=== PATIENT | male | born 1975 | race Two or more races ===

== ENCOUNTER 2024-08-19 08:54 | Inpatient (IN) | payer MEDICAID, OTHER ==
[~2024-08-19] VITALS: Ht 167.6 cm; Wt 100.1 kg
[~2024-08-19 08:54] MED LIST: ATEN-60 PO; HYDR12.59 PO; METF-372 PO
[2024-08-19 10:33] LABS: Basophils # (auto) 0.1 10 ^3/uL (0-0.2); Basophils % (auto) 0.7 % (0.0-2.0); Eosinophils # (auto) 0.1 10 ^3/uL (0-0.8); Eosinophils % (auto) 1.5 % (0.0-7.0); Hematocrit 45.1 % (41.0-53.0); Hemoglobin 14.7 g/dL (13.5-17.5); Lymphocytes # (auto) 2.3 10 ^3/uL (0.4-5.4); Lymphocytes % (auto) 24.5 % (10.0-50.0); Mean Corpuscular Hgb Conc. 32.6 g/dL (32.0-36.0); Monocytes # (auto) 0.5 10 ^3/uL (0-1.3); Monocytes % (auto) 5.4 % (0.0-12.0); Neutrophils # (auto) 6.5 10 ^3/uL (1.6-8.6); Neutrophils % (auto) 67.9 % (37.0-80.0); Platelet Count (auto) 261 10^3/uL (140-450); White Blood Cell 9.5 10^3/uL (4.4-10.8)
--- NOTE | 2024-08-19 10:45 | ED.PDOC ---
History of Present Illness HPI Comments 49 year old male presents to the ED with chief complaint of abdominal pain and SOB. Patient reports that his home health nurse had noted that the patient had redness to his suprapubic region that she saw today, worried it might be cellulitis and was advised to come into the ED. Patient relays that he also has been experiencing chest pain, lower leg edema, and SOB for the past 3 weeks. 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 Patient denies any N/V/D, dizziness, headache, fever, or chills. Chief Complaint: Abdominal Pain Time Seen by MD: 10:34 Primary Care Provider: VAL DEJESUS Reviewed Notes: Nurses Notes, Medications, Allergies Allergies: Coded Allergies: NO KNOWN ALLERGIES (Unverified , 03/12/13) Home Meds Reported Medications Atenolol (Atenolol) 25 Mg Tab, 25 MG PO DAILY 03/12/13 Hydrochlorothiazide (Hydrochlorothiazide) 12.5 Mg Cap, 12.5 MG PO DAILY 03/12/13 Information Source: Patient Mode of Arrival: Wheelchair Severity: Moderate Timing: Weeks Duration: Since onset Prehospital treatment: None Past Medical History PAST MEDICAL HISTORY: Asthma, CHF, DM, HTN Past Medical History (Other): Cardiomyopathy Surgical History (Other): Tumor removal surgery Family History Family History: Reviewed,noncontributory to illness, Unknown Social History Smoker: Cigarettes Alcohol: Denies ETOH Use Drugs: Denies Drug Use Lives In: Home Constitutional: denies: chills, diaphoresis, fatigue, fever, malaise, sweats, weakness, others EENTM: denies: blurred vision, double vision, ear bleeding, ear discharge, ear drainage, ear pain, ear ringing, eye pain, eye redness, hearing loss, mouth pain, mouth swelling, nasal discharge, nose bleeding, nose congestion, nose pain, photophobia, tearing, throat pain, throat swelling, voice changes, others Respiratory: reports: shortness of breath; denies: cough, hemoptysis, orthopnea, SOB at rest, SOB with excertion, stridor, wheezing, others Cardiovascular: reports: chest pain, edema; denies: dizzy spells, diaphoresis, Dyspnea on exertion, irregular heart beat, left arm pain, lightheadedness, palpitations, PND, syncope, others Gastrointestinal: reports: abdominal pain; denies: abdomen distended, blood streaked bowels, constipated, diarrhea, dysphagia, difficulty swallowing, hematemesis, melena, nausea, poor appetite, poor fluid intake, rectal bleeding, rectal pain, vomiting, others Genitourinary: denies: burning, dysuria, flank pain, frequency, hematuria, incontinence, penile discharge, penile sore, pain, testicle pain, testicle swelling, urgency, others Neurological: denies: dizziness, fainting, headache, left sided numbness, left sided weakness, numbness, paresthesia, pre-existing deficit, right sided numbness, right sided weakness, seizure, speech problems, tingling, tremors, weakness, others Musculoskeletal: denies: back pain, gout, joint pain, joint swelling, muscle pain, muscle stiffness, neck pain, others Integumetry: reports: lesions; denies: bruises, change in color, change in hair/nails, dryness, laceration, lumps, rash, wounds, others Allergic/Immunocompromised: denies: Difficulty Healing, Frequent Infections, Hives, Itching, others Hematologic/Lymphatic: denies: anemia, blood clots, easy bleeding, easy bruising, swollen glands, others Endocrine: denies: excessive hunger, excessive sweating, excessive thirst, excessive urination, flushing, intolerance to cold, intolerance to heat, unexplained weight gain, unexplained weight loss, others Psychiatric: denies: anxiety, bipolar disorder, depression, hopeless, panic disorder, schizophrenia, sleepless, suicidal, others All Other Systems: Reviewed and Negative Physical Exam General Appearance: Moderate Distress, Normal HEENT: Normal ENT Inspection, PERRL/EOMI Neck: Full Range of Motion, Non-Tender, Normal, Normal Inspection Respiratory: Chest Non-Tender, Lungs Clear, No Accessory Muscle Use, No Respiratory Distress, Normal Breath Sounds Cardiovascular: No Edema, No JVD, No Murmur, No Gallop, Normal Peripheral Pulses, Regular Rate/Rhythm Breast Exam: Deferred Gastrointestinal: No Organomegaly, Non Tender, No Pulsatile Mass, Normal Bowel Sounds, Soft Genitalia: Deferred Pelvic: Deferred Rectal: Deferred Extremities: No calf tenderness, Normal capillary refill, Normal inspection, Normal range of motion, Non-tender, Pedal edema Musculoskeletal : Apperance: Normal Neurologic: Alert, concrete block mason II-XII nml as Tested, No Motor Deficits, Normal Affect, Normal Mood, No Sensory Deficits Cerebellar Function: NOT DONE Reflexes: NOT DONE Skin: Dry, Normal Color, Warm Peripheral Pulses: 3+ Radial (R), 3+ Radial (L) Lymphatic: No Adenopathy Was a procedure done? Was a procedure done?: No Differential Dx Considerations may include: CHF Cellulitis X-Ray, Labs, Meds, VS Vital Signs Date Time Temp Pulse Resp B/P (MAP) Pulse Ox O2 Delivery O2 Flow Rate FiO2 08/19/24 09:15 99.3 108 20 121/87 (98) 96 Lab Test 08/19/24 09:48 08/19/24 09:11 Range/Units White Blood Count 9.5 4.4-10.8 10^3/uL Red Blood Count 4.90 4.5-5.90 10^6/uL Hemoglobin 14.7 13.5-17.5 g/dL Hematocrit 45.1 41.0-53.0 % Mean Corpuscular Volume 92.0 80.0-100.0 fL Mean Corpuscular Hemoglobin 30.0 28.0-32.0 pg Mean Corpuscular Hemoglobin Concent 32.6 32.0-36.0 g/dL Red Cell Distribution Width 16.0 H 11.8-14.3 % Platelet Count 261 140-450 10^3/uL Mean Platelet Volume 9.0 6.9-10.8 fL Neutrophils (%) (Auto) 67.9 37.0-80.0 % Lymphocytes (%) (Auto) 24.5 10.0-50.0 % Monocytes (%) (Auto) 5.4 0.0-12.0 % Eosinophils (%) (Auto) 1.5 0.0-7.0 % Basophils (%) (Auto) 0.7 0.0-2.0 % Neutrophils # (Auto) 6.5 1.6-8.6 10 ^3/uL Lymphocytes # (Auto) 2.3 0.4-5.4 10 ^3/uL Monocytes # (Auto) 0.5 0-1.3 10 ^3/uL Eosinophils # (Auto) 0.1 0-0.8 10 ^3/uL Basophils # (Auto) 0.1 0-0.2 10 ^3/uL Nucleated Red Blood Cells 0.0 % Sodium Level Pending Potassium Level Pending Chloride Level Pending Carbon Dioxide Level Pending Anion Gap Pending Blood Urea Nitrogen Pending Creatinine Pending Glomerular Filtration Rate Calc Pending BUN/Creatinine Ratio Pending Serum Glucose Pending Calcium Level Pending POC Glucose 120 H 70-106 mg/dl Patient alert. Vitals stable. Answering all questions. He does have increased adipose tissue. Redness suprapubic region. Cellulitis. Cardiomyopathy. Cardiology consultation. Echocardiogram. He used drugs in his younger days. Bilateral lower extremity pitting edema. Explained to the patient. Time of 1ST Reevaluation: 11:34 Reevaluation 1ST: Unchanged Patient Education/Counseling: Diagnosis, Treatment Family Education/Counseling: No Family Present Additional Information I reviewed the following notes from patient's past medical encounters: 04/16/13 for PNA The following tests were ordered, and results were reviewed by me: BMP, CBC, UA Additional Information was gathered from interviewing the following independent historians: Semiautomatic Stitcher Operator I reviewed and agreed with the following test results read by other providers: None I discussed treatment and results with medical personnel and fire claims adjuster. Departure 1 Departure Time of Disposition: 11:21 Impression: Primary Impression: CHF (congestive heart failure) Qualified Codes: I50.43 - Acute on chronic combined systolic (congestive) and diastolic (congestive) heart failure Additional Impression: Cellulitis Qualified Codes: L03.119 - Cellulitis of unspecified part of limb Disposition: 09 ADMITTED INPATIENT Admit to: Med Surg Condition: Guarded Critical Care Note Critical Care Time?: Yes (45 min-critical care time only) Stability Stability form required: No Heart Score Heart Score: Heart Score Response (Comments) Value History N/A 0 EKG N/A 0 Age N/A 0 Risk Factors N/A 0 Troponin N/A 0 Total 0 I personally scribed for HESHAM RAMIREZ MD ([email or web address]) on 08/19/24 at 10:45. Electronically submitted by Lai Lincoln ([email or web address]). HESHAM RAMIREZ MD Aug 19, 2024 10:45
[2024-08-19 11:18] VITALS: PULSE 106; RESP 18; O2SAT 98
[2024-08-19 11:27] LABS: Potassium 4.6 mmol/L (3.5-5.1); Sodium 139 mmol/L (136-145)
[2024-08-19 11:28] LABS: Anion Gap 6 (5-15); Calcium 9.3 mg/dL (8.7-10.4); Carbon Dioxide 26 mmol/L (20-31)
[2024-08-19 11:33] LABS: BUN/Creatinine Ratio 18.7 (10.0-20.0); Blood Urea Nitrogen 14 mg/dL (9-23); Chloride 107 mmol/L (98-107); Glucose 129 mg/dL (74-106)
[2024-08-19] MEDS: cefTRIAXone 1GM/50ML D5W 50 ML IV ONE (12:17)
[2024-08-19] MEDS: FUROSEMIDE 40 MG/4 ML VIAL IV ONE (12:18)
[2024-08-19] MEDS: CLINDAMYCIN 600MG IV 50 ML IV ONE (12:52)
[2024-08-19 13:22] LABS: Urine Bacteria None Seen /hpf (None Seen); Urine WBC None Seen /hpf (0 - 3)
[2024-08-19 13:37] LABS: Urine Blood Negative /uL (Negative); Urine Clarity Clear (Clear); Urine Color Colorless (Yellow); Urine Mucus FEW (None Seen); Urine Protein, UAD Negative (Negative); Urine Specific Gravity 1.007 (1.001-1.035); Urine Squamous Epithelial Cell FEW /hpf (<5); Urine Urobilinogen Normal (Negative); Urine pH 5.5 (5.0-9.0)
[2024-08-19] MEDS ORDERED: CARV6.2551 PO (15:41)
[2024-08-19] MEDS ORDERED: SPIR25TA8 PO (15:41)
[2024-08-19] MEDS ORDERED: ASPI-325 PO (15:41)
[2024-08-19] MEDS ORDERED: OMEG-86 PO (15:41)
[2024-08-19] MEDS ORDERED: FURO40TA4 PO (15:41)
[2024-08-19] MEDS ORDERED: MORPHINE SULFATE INJ 2 MG/ml SYRG IV PRN (15:45)
[2024-08-19] MEDS ORDERED: HYDROcodone-ACET 5/325MG TAB PO PRN (15:45)
[2024-08-19] MEDS ORDERED: ONDANSETRON HCL 4 MG/2 ML VIAL IV PRN (15:45)
[2024-08-19] MEDS ORDERED: ACETAMINOPHEN 325 MG TAB PO PRN (15:45)
[2024-08-19] MEDS ORDERED: DEXTROSE (50%) 50ML SYRG IV PRN (15:45)
[2024-08-19] MEDS ORDERED: ALBUTEROL SULF 2.5 MG/0.5ML(0.5%) NEB SOLN NEB PRN (16:00)
[2024-08-19] MEDS ORDERED: IPRATROPIUM BROM 0.5 MG/2.5ML INH SOL NEB PRN (16:00)
--- NOTE | 2024-08-19 16:04 | DVHHP2 ---
History of Present Illness Reason for Visit: abdominal pain, SOB, and skin redness History of Present Illness Yonny Shane is a 49YO M with pmHx of HTN, DM, Asthma, CHF, peripheral ana ropathy, tonsillectomy, hernia repair, ear tubes, and tumor removal who presents to the ED for abdominal pain, shortness of breath, left lower extremity edema, and suprapubic redness x2 weeks. Patient reports that he is compliant with his medications. Patient denies any chest pain, nausea, vomiting, diarrhea, lightheadedness, fever, chills, recent sick contacts, and dizziness. Patient reports that he just moved here and is trying to establish care. Cardiovascular: CHF, HTN Pulmonary: Asthma Endocrine: Diabetes Past Medical History Peripheral neuropathy Past Surgical History: Hernia Repair, Other, Tonsillectomy Past Surgical History Eustachian tubes Tumor removal in abdomen Family History: Cancer, DM, Other (Dad leukemia cancer and diabetes, grandma breast cancer, mom with thyroid disease), Thyroid disfunction Smoke: <1 pack per day ALCOHOL: none Drugs: None Lives: with Family Domestic Violence: Neg Review of Systems Constitutional: No: Fever, Chills, Sweats, Weakness, Malaise, Other Eyes: No: Pain, Vision change, Conjunctivae inflammation, Eyelid inflammation, Other, Redness ENT: No: Ear pain, Ear discharge, Nose pain, Nose discharge, Nose congestion, Mouth pain, Mouth swelling, Throat pain, Throat swelling, Other Respiratory: Shortness of breath; No: Cough, Dry, SOB with excertion, Wheezing, Hemoptysis, Pleuritic Pain, Sputum, Wheezing, Other Cardiovascular: No: Chest Pain, Palpitations, Orthopnea, Paroxysmal Noc. Dyspnea, Edema, Lt Headedness, Other Gastrointestinal: Abdominal Pain; No: Nausea, Vomiting, Diarrhea, Constipation, Melena, Hematochezia, Other Genitourinary: No Dysuria, No Frequency, No Incontinence, No Hematuria, No Retention, No Other Musculoskeletal: No: other, neck pain, shoulder pain, arm pain, back pain, hand pain, leg pain, foot pain Skin: Other; No: Rash, Lesions, Jaundice, Bruising Neurological: No: Weakness, Numbness, Incoordination, Change in speech, Confusion, Seizures, Other Allergies: Coded Allergies: NO KNOWN ALLERGIES (Unverified , 03/12/13) Medications Current Medications Medications Dose Ordered Sig/Radha Route Start Time Stop Time Status Last Admin Dose Admin Ceftriaxone Sodium 50 ml @ 100 mls/hr DAILY@09 IV 08/20/24 09:00 UNV Clindamycin Phosphate 50 ml @ 50 mls/hr Q8HR IV 08/19/24 22:00 UNV Atenolol 25 mg DAILY PO 08/20/24 10:00 UNV Patient Own Medication 12.5 mg DAILY PO 08/20/24 10:00 UNV Exam Vital Signs Vital Signs Date Time Temp Pulse Resp B/P (MAP) Pulse Ox O2 Delivery O2 Flow Rate FiO2 08/19/24 14:37 100 19 141/85 (103) 96 08/19/24 11:18 98.6 98.6 08/19/24 11:18 Room Air* 0 21 General Appearance: Alert, Oriented X3, Cooperative, mild distress HEENT: Atraumatic, PERRLA, EOMI, Mucous membr. moist/pink Respiratory: Normal air movement Cardiovascular: Normal S1, Normal S2, No murmurs Abdominal: Soft Extremities: No cyanosis Neuro: Normal speech, Normal tone, Sensation intact Psych/Mental Status: Mental status NL, Mood NL Labs/Xrays Labs Test 08/19/24 11:41 08/19/24 09:48 08/19/24 09:11 Range/Units Urine Color Colorless Yellow Urine Clarity Clear Clear Urine pH 5.5 5.0-9.0 Urine Specific [place] 1.007 1.001-1.035 Urine Protein Negative Negative Urine Ketones Negative Negative Urine Blood Negative Negative /uL Urine Nitrite Negative Negative Urine Bilirubin Negative Negative Urine Urobilinogen Normal Negative mg/dL Urine Leukocyte Esterase Negative Negative /uL Urine RBC None seen 0 - 3 /hpf Urine WBC None seen 0 - 3 /hpf Urine Squamous Epithelial Cells Few <5 /hpf Urine Bacteria None seen None Seen /hpf Urine Mucus Few None Seen Urine Glucose Normal Normal mg/dL White Blood Count 9.5 4.4-10.8 10^3/uL Red Blood Count 4.90 4.5-5.90 10^6/uL Hemoglobin 14.7 13.5-17.5 g/dL Hematocrit 45.1 41.0-53.0 % Mean Corpuscular Volume 92.0 80.0-100.0 fL Mean Corpuscular Hemoglobin 30.0 28.0-32.0 pg Mean Corpuscular Hemoglobin Concent 32.6 32.0-36.0 g/dL Red Cell Distribution Width 16.0 H 11.8-14.3 % Platelet Count 261 140-450 10^3/uL Mean Platelet Volume 9.0 6.9-10.8 fL Neutrophils (%) (Auto) 67.9 37.0-80.0 % Lymphocytes (%) (Auto) 24.5 10.0-50.0 % Monocytes (%) (Auto) 5.4 0.0-12.0 % Eosinophils (%) (Auto) 1.5 0.0-7.0 % Basophils (%) (Auto) 0.7 0.0-2.0 % Neutrophils # (Auto) 6.5 1.6-8.6 10 ^3/uL Lymphocytes # (Auto) 2.3 0.4-5.4 10 ^3/uL Monocytes # (Auto) 0.5 0-1.3 10 ^3/uL Eosinophils # (Auto) 0.1 0-0.8 10 ^3/uL Basophils # (Auto) 0.1 0-0.2 10 ^3/uL Nucleated Red Blood Cells 0.0 % Sodium Level 139 136-145 mmol/L Potassium Level 4.6 3.5-5.1 mmol/L Chloride Level 107 98-107 mmol/L Carbon Dioxide Level 26 20-31 mmol/L Anion Gap 6 5-15 Blood Urea Nitrogen 14 9-23 mg/dL Creatinine 0.75 0.700-1.30 mg/dL Glomerular Filtration Rate Calc 109 >90 mL/min BUN/Creatinine Ratio 18.7 10.0-20.0 Serum Glucose 129 H 74-106 mg/dL Calcium Level 9.3 8.7-10.4 mg/dL POC Glucose 120 H 70-106 mg/dl Assessment/Plan Assessment/Plan Assessment/Plan: Intractable abdominal pain Cellulitis of suprapubic area rule out sepsis Acute on chronic CHF exacerbation UA IV antibiotics-clindamycin and ceftriaxone IV Lasix CT abdomen and pelvis Echo ordered Last echo done on 04/16/2013 EF <10% Labs A.m. labs Antiemetics Pain management Lactic ESR CRP Blood cultures Chest x-ray BNP History of Diabetes Hemoglobin A1c ISS and Accu-Cheks Chronic hypertension Continue home medications Chronic asthma P.r.n. breathing treatments Hyperglycemia Hemoglobin A1c ISS and Accu-Cheks FEN/PPX diet hl DVT prophylaxis -Lovenox PUD prophylaxis - not indicated no history of GERD or GI bleed Admit to med surg Home medications reconciled Discussed plan of care with patient, mom and nurse Plan discussed with: Patient My Orders Orders - EFREN FISHP Procedure Category Date Status Time Ceftriaxone 1gm/50ml PHA 08/20/24 Logged D5w (Rocephin) 09:00 Clindamycin 600mg Iv PHA 08/19/24 Logged (Cleocin Iv) 22:00 Atenolol Tablet PHA 08/20/24 Logged (Tenormin Tablet) 10:00 (NF) PHA 08/20/24 Logged Hydrochlorothiazide 10:00 Admit ADMIT 08/19/24 Verified 15:41 Allergies RUSLAN 08/19/24 Verified 15:41 Code Status CODE 08/19/24 Verified 15:41 Hydrocodone-Acet PHA 08/19/24 Verified 5/325mg Tab (Mineral 15:45 Ondansetron Hcl PHA 08/19/24 Verified (Zofran) 15:45 Enoxaparin Sodium PHA 08/20/24 Verified (Lovenox) 10:00 Complete Blood Count LAB 08/20/24 Verified 04:00 Comprehensive LAB 08/20/24 Verified Metabolic Panel 04:00 Cardiac DIET 08/19/24 Verified Diet-2gna,Lofat,Lochol Dinner Acetaminophen Tablet PHA 08/19/24 Verified (Tylenol Tablet) 15:45 Morphine Sulfate PHA 08/19/24 Verified Injection 15:45 Ct Ab Pel Wo Con-No CT 08/19/24 Verified Oral Or Iv 15:41 Hemoglobin A1c LAB 08/19/24 Verified 15:41 Glucose Blood PHA 08/19/24 Verified (Accu-Chek Comfort 17:00 Mild Sliding Scale PHA 08/19/24 Verified 17:00 Dextrose 50% Syringe PHA 08/19/24 Verified 15:45 Echo 2d Mode Cardiac US 08/19/24 Verified DOP 15:41 Date of Service: Aug 19, 2024 Billing Provider: EFREN FISH Common Visit Codes: 54066-TRFSUDE INP/OBS CARE (HIGH) EFREN FISHP Aug 19, 2024 16:04
[2024-08-19 16:15] VITALS: BP 143/91; PULSE 101; RESP 20; TEMP 98.6; O2SAT 97
--- NOTE | 2024-08-19 16:19 | DVH ---
CHEST RADIOGRAPH Indication: sob Technique: Single frontal view of the chest was obtained Comparison: None FINDINGS: Lines and Tubes: None Lungs: No focal consolidation. Pleura: No effusion. No pneumothorax. Cardiomediastinal contours: Cardiomegaly Bones: No acute osseous abnormality. IMPRESSION: Cardiomegaly with mild CHF
--- NOTE | 2024-08-19 16:21 | DVH ---
Exam: CT CT AB PEL WO CON-NO ORAL OR IV History: abd pain Comparison Study: None Technique: Multidetector spiral CT of the abdomen and pelvis was performed from lung bases to pubic symphysis. Imaging was performed without IV contrast. Axial, coronal and sagittal multiplanar reform ats were obtained from the axial data set by the technologist. Radiation dose : Abdomen/Pelvis: CTDIvol 25 mGy, DLP 1387 mGy*cm. Findings: Limited by motion. Evaluation of solid organs is limited due to lack of intravenous contrast use. Lung Bases: Atelectasis and scarring in the lung bases. Moderate cardiomegaly. Liver: The liver is normal in size. No focal lesions. Gallbladder and biliary Tree: Marked gallbladder wall thickening. No radiopaque calculi identified Spleen: Unremarkable Pancreas: The pancreas is grossly normal in appearance. Adrenal Glands: Unremarkable Kidneys: Kidneys are grossly normal without calculi or hydronephrosis. Bladder: Grossly unremarkable for degree of distention. Bowel: The stomach is grossly normal in appearance. Small bowel and colon are normal in caliber and d istribution. The appendix is not visualized; however, no secondary findings of acute appendicitis id entified. Ascites: Absent Lymphadenopathy: No mesenteric, retroperitoneal or periportal lymphadenopathy. Abdominal wall and Mesentery: Unremarkable. Vasculature: The visualized abdominal aorta is normal in size and caliber. Evaluation of abdominal a nd pelvic vessels is limited due to lack of intravenous contrast. Pelvic Organs: Unremarkable Musculoskeletal: No aggressive focal bony lesions, acute fractures or dislocation. IMPRESSION: 1. Diffuse gallbladder wall thickening. No definite radiopaque calculus identified. Consider further evaluation with right upper quadrant ultrasound. Radiation optimization: All CT scans at this facility use at least one of these dose optimization marylin hniques: Automated exposure control mA and/or kV adjustment per patient size (includes targeted exams where dose is matched to clinical indication) or iterative reconstruction. HS:Y
[2024-08-19 16:53] VITALS: BP 141/85; PULSE 100; RESP 19; TEMP 98.6; O2SAT 96
[2024-08-19] MEDS: InsuLIN REG 1unit/0.01ml Soln (100units/ml) SC SCH (17:00)
[2024-08-19] MEDS: ACCU-CHEK COMFORT CURVE STRIP VI SCH (17:00)
[2024-08-19 18:24] VITALS: BP 143/91; PULSE 101; RESP 20; TEMP 98.6; O2SAT 97
--- NOTE | 2024-08-19 18:54 | DVH ---
EXAM: US ABDOMEN LIMITED CLINICAL HISTORY: pain TECHNIQUE: Grayscale and limited color flow doppler ultrasound of the right upper quadrant is perfor med. COMPARISON: None Findings: Liver measures 20.1 cm in length with normal echotexture and contour. No evidence of focal hepatic l esions or intra- or extrahepatic ductal dilatation. Common bile duct measures 0.6 cm in diameter. Nor mal hepatopedal flow noted within the portal vein. No perihepatic free fluid is noted. Gallbladder wall thickness measuring 1.1 cm with edema. No evidence of shadowing calculi, biliary sl udge or pericholecystic fluid. Negative sonographic Reveles's sign. Pancreas only partially visualized due to overlying bowel gas but is otherwise unremarkable . Right kidney measures 11.2 cm with normal contours, echotexture and cortical thickness. No evidence o f hydronephrosis, calculi, cystic or solid renal lesions. Partially visualized inferior vena cava unremarkable. Impression: 1. No evidence of acute right upper quadrant abnormalities. 2. Hepatomegaly. 3. Thickened, edematous gallbladder wall without evidence of acute cholecystitis.
[2024-08-19 20:32] LABS: Erythrocyte Sedimentation Rate 14 mm/hr (0-20)
[2024-08-19 20:50] VITALS: O2SAT 96
[2024-08-19 21:00] VITALS: BP 131/95; PULSE 102; RESP 18; TEMP 98.6; O2SAT 96
[2024-08-19] MEDS: CLINDAMYCIN 600MG IV 50 ML IV SCH (22:39)
[2024-08-20] VITALS (11 sets, daily range): BP systolic 103–131; BP diastolic 74–94; PULSE 79–105; RESP 18–22; TEMP 98–98.5; O2SAT 92–99
[2024-08-20 06:22] LABS: Basophils # (auto) 0.1 10 ^3/uL (0-0.2); Basophils % (auto) 0.7 % (0.0-2.0); Eosinophils # (auto) 0.2 10 ^3/uL (0-0.8); Eosinophils % (auto) 1.5 % (0.0-7.0); Hematocrit 45.6 % (41.0-53.0); Hemoglobin 14.7 g/dL (13.5-17.5); Lymphocytes # (auto) 3.4 10 ^3/uL (0.4-5.4); Lymphocytes % (auto) 32.4 % (10.0-50.0); Mean Corpuscular Hemoglobin 29.7 pg (28.0-32.0); Mean Corpuscular Hgb Conc. 32.2 g/dL (32.0-36.0); Mean Corpuscular Volume 92.4 fL (80.0-100.0); Monocytes # (auto) 0.6 10 ^3/uL (0-1.3); Monocytes % (auto) 5.6 % (0.0-12.0); Neutrophils # (auto) 6.3 10 ^3/uL (1.6-8.6); Neutrophils % (auto) 59.8 % (37.0-80.0); Nucleated Red Blood Cells % 0.2 %; Platelet Count (auto) 271 10^3/uL (140-450); Red Blood Cells 4.93 10^6/uL (4.5-5.90); White Blood Cell 10.5 10^3/uL (4.4-10.8)
[2024-08-20 06:31] LABS: Alanine Aminotransferase 36 U/L (7-40); Albumin 4.3 g/dL (3.2-4.8); Anion Gap 7 (5-15); Aspartate Aminotransferase 25 U/L (13-40); BUN/Creatinine Ratio 19.8 (10.0-20.0); Blood Urea Nitrogen 18 mg/dL (9-23); Calcium 9.7 mg/dL (8.7-10.4); Carbon Dioxide 26 mmol/L (20-31); Chloride 106 mmol/L (98-107); Potassium 4.4 mmol/L (3.5-5.1); Sodium 139 mmol/L (136-145)
[2024-08-20 06:32] LABS: Bilirubin, Total 0.4 mg/dL (0.2-1.0); Total Protein 7.2 g/dL (5.7-8.2)
[2024-08-20 06:33] LABS: Alkaline Phosphatase 122 U/L (46-116); Glucose 114 mg/dL (74-106)
[2024-08-20] MEDS: ATENOLOL 25 MG TAB PO SCH (09:32)
[2024-08-20] MEDS: FUROSEMIDE 40 MG/4 ML VIAL IV SCH (09:34)
[2024-08-20] MEDS: hydroCHLOROthiazide 25 MG TAB PO SCH (09:34)
[2024-08-20] MEDS: cefTRIAXone 1GM/50ML D5W 50 ML IV SCH (09:34)
[2024-08-20] MEDS: ENOXAPARIN SOD 40 MG/0.4 ML SYRINGE SC SCH (09:35)
[2024-08-20] MEDS ORDERED: PATIENTS OWN MEDICATION (Hydrochlorothiazide 12.5 MG) PO SCH (10:00)
--- NOTE | 2024-08-20 14:43 | DVHSR ---
APPROVED REPORT EXAM: LIMITED Two-dimensional and M-mode echocardiogram with Doppler and color Doppler. Blood Pressure: 112/79 mmHg INDICATION SOB RISK FACTORS Obesity: Height: 5' 6", Weight: 288 DIMENSIONS LVDd7.3 (3.8-5.7cm)LA (2D)5.2 (1.9-4.0cm)Aortic Root3.3 (2.0-3.7cm) LVDs6.6 (2.5-4.0cm)LA (MM) (1.9-4.0cm)Aortic Cusp Exc1.9 (1.5-2.0cm) EF (%) 15.0 (55-70%)Rt. Atrium5.6 (1.9-4.0cm)Asc. Aorta cm IVSd1.1 (0.7-1.1cm)RV (D) (1.8-2.4cm) PWd1.2 (0.7-1.1cm) Mitral Valve MitralMitral Stenosis E wave1.50m/sMV Mean GR.mmHg A wave0.70m/sMV Peak GR.mmHg E/A ratio2.12D MVAcm2 Aortic Valve Aortic ValveAortic Stenosis V10.60m/[place] Mean GR.1mmHg V20.75m/[place] Peak GR.2mmHg LVOT Diameter2.6 (1.8-2.4cm)Doppler AVA4.25cm2 Pulmonic Valve V21.10m/s Tricuspid Valve TR Velocity2.80m/s [id number] LEFT VENTRICLE The left ventricle is severely dilated in size. Wall thickness is mildly increased. Ejection fracti on is severely decreased and is estimated at 15%. There is severe global hypokinesis. There is rest rictive filling pattern of the left ventricle. E to E prime ratio is more than 15 suggestive of elev ated left-sided filling pressure. RIGHT VENTRICLE Mildly dilated in size. Systolic function is moderately decreased. ATRIA Severely dilated in size. Moderately dilated in size. MITRAL VALVE There is tethering of the leaflets more severe in the posterior leaflet. There is [id number] eccentric mitral jet that is posteriorly and laterally directed. PULMONIC VALVE Likely normal. TRICUSPID VALVE There is [id number] tricuspid regurgitation. PA systolic pressure is estimated at 40 mm Hg. AORTIC VALVE Normal in structure and function. GREAT VESSELS The aortic root is of normal size. PERICARDIAL EFFUSION No significant pericardial effusion. IVC is dilated in size. Other Information Quality : Technically LimitedRhythm : Technically limited study due to body habitus. Conclusion The study is technically limited because of body habitus. The left ventricle is severely dilated in size with severely decreased systolic function. Ejection fraction is estimated at 15%. There is severe global hypokinesis. Dilated right ventricle with moderately decreased systolic function. There is restrictive filling pattern of the left ventricle with evidence of elevated left-sided filli ng pressure. Severely dilated left atrial chamber size. Tethering of the posterior mitral valve leaflet with [id number] mitral regurgitation. The re gurgitation jet is eccentric and could be underestimated.
[2024-08-20] MEDS: IPRATROPIUM BROM 0.5 MG/2.5ML INH SOL ONE (14:46)
[2024-08-20] MEDS: ALBUTEROL SULF 2.5 MG/0.5ML(0.5%) NEB SOLN ONE (14:46)
[2024-08-21] VITALS (11 sets, daily range): BP systolic 105–139; BP diastolic 57–95; PULSE 76–103; RESP 18–20; TEMP 97.7–98.8; O2SAT 94–100
[2024-08-21] MEDS: IPRATROPIUM BROM 0.5 MG/2.5ML INH SOL NEB PRN (07:37)
[2024-08-21] MEDS: ALBUTEROL SULF 2.5 MG/0.5ML(0.5%) NEB SOLN NEB PRN (07:37)
--- NOTE | 2024-08-21 11:52 | DVHPN2 ---
Reviewed: Care Plan, H&P, Labs, Medications, Previous Orders, Radiology Changes from previous H/P or p: No Changes Eyes: No Pain, No Vision change, No Conjunctivae inflammation, No Eyelid inflammation, No Other, No Redness ENT: No Ear pain, No Ear discharge, No Nose pain, No Nose discharge, No Nose congestion, No Mouth pain, No Mouth swelling, No Throat pain, No Throat swelling, No Other Cardiovascular: No Chest Pain, No Palpitations, No Orthopnea, No Paroxysmal Noc. Dyspnea, No Edema, No Lt Headedness, No Other Respiratory: No Cough, No Dry; Shortness of breath; No SOB with excertion, No Wheezing, No Hemoptysis, No Pleuritic Pain, No Sputum, No Other Gastrointestinal: No Nausea, No Vomiting; Abdominal Pain; No Diarrhea, No Constipation, No Melena, No Hematochezia, No Other Genitourinary: No Dysuria, No Frequency, No Incontinence, No Hematuria, No Retention, No Other Musculoskeletal: No other, No neck pain, No shoulder pain, No arm pain, No back pain, No hand pain, No leg pain, No foot pain Skin: No Rash, No Lesions, No Jaundice, No Bruising; Other Objective Vitals Vital Signs Date Time Temp Pulse Resp B/P (MAP) Pulse Ox O2 Delivery O2 Flow Rate FiO2 08/21/24 09:40 128/84 08/21/24 09:40 103 08/21/24 09:00 98.4 18 96 98.4 08/21/24 07:37 Room Air* 0 21 Intake/Output Intake and Output 08/21/24 07:00 Intake Total 1050 ml Balance 1050 ml Intake Oral 1000 ml IV Total 50 ml # Voids 14 Medications Current Medications Medications Dose Ordered Sig/Radha Route Start Time Stop Time Status Last Admin Dose Admin Ceftriaxone Sodium 50 ml @ 100 mls/hr DAILY@09 IV 08/20/24 09:00 08/21/24 09:38 100 MLS/HR Clindamycin Phosphate 50 ml @ 50 mls/hr Q8HR IV 08/19/24 22:00 08/21/24 05:37 50 MLS/HR Atenolol 25 mg DAILY PO 08/20/24 10:00 08/21/24 09:40 25 MG Patient Own Medication 12.5 mg DAILY PO 08/20/24 10:00 UNV Acetaminophen/ Hydrocodone Bitart 1 tab Q4HP PRN PO 08/19/24 15:45 Ondansetron HCl 4 mg Q4HP PRN IV 08/19/24 15:45 Enoxaparin Sodium 40 mg DAILY SC 08/20/24 10:00 08/21/24 09:41 40 MG Acetaminophen 650 mg Q6HP PRN PO 08/19/24 15:45 Morphine Sulfate 2 mg Q4HPRN PRN IV 08/19/24 15:45 Diagnostic Test (Pha) 1 strip ACHS 08/19/24 17:00 08/21/24 05:42 1 STRIP Insulin Human Regular ACHS SC 08/19/24 17:00 08/20/24 21:21 2 UNITS Dextrose 50 ml UD PRN IV 08/19/24 15:45 Albuterol 2.5 mg Q4HPRN PRN NEB 08/19/24 16:00 Cancel Ipratropium [place] 0.5 mg Q4HPRN PRN NEB 08/19/24 16:00 Cancel Hydrochlorothiazide 12.5 mg DAILY PO 08/20/24 10:00 08/21/24 09:40 12.5 MG Furosemide 40 mg DAILY IV 08/20/24 10:00 08/21/24 09:38 40 MG Albuterol 2.5 mg Q4HPRN PRN NEB 08/20/24 14:45 08/21/24 07:37 2.5 MG Ipratropium [place] 0.5 mg Q4HPRN PRN NEB 08/20/24 14:45 08/21/24 07:37 0.5 MG Laboratory Results Laboratory Tests 08/20/24 05:23 Urinalysis Test 08/19/24 11:41 Urine Color Colorless (Yellow) Urine Clarity Clear (Clear) Urine pH 5.5 (5.0-9.0) Urine Specific [place] 1.007 (1.001-1.035) Urine Protein Negative (Negative) Urine Ketones Negative (Negative) Urine Blood Negative /uL (Negative) Urine Nitrite Negative (Negative) Urine Bilirubin Negative (Negative) Urine Urobilinogen Normal mg/dL (Negative) Urine Leukocyte Esterase Negative /uL (Negative) Urine RBC None seen /hpf (0 - 3) Urine WBC None seen /hpf (0 - 3) Urine Squamous Epithelial Cells Few /hpf (<5) Urine Bacteria None seen /hpf (None Seen) Urine Mucus Few (None Seen) Urine Glucose Normal mg/dL (Normal) Microbiology Microbiology Date/Time Source Procedure Growth Status 08/19/24 18:52 Blood Blood Culture - Preliminary NO GROWTH AFTER 24 HOURS OF INCUBATION. Resulted Labs and/or images reviewed: Labs reviewed by me, Image(s) reviewed by me Assessment/Plan Assessment/Plan Intractable abdominal pain Cellulitis of suprapubic area : Rocephin clindamycin Thickened gallbladder wall : Cholecystitis ruled out Sepsis Acute CHF exacerbation Lasix echocardiogram 15 percent ejection fraction, cardiology consult Acute COPD exacerbation: Med neb Diabetes Hypertension Asthma Chronic Current smoker: Counseling History of abdominal tumor removal Patient is full code Advanced care planning time 20 minutes Plan discussed with: Patient Date of Service: Aug 21, 2024 Billing Provider: SYLVIA BARTH MD Common Visit Codes: [id number] INP/OBS CARE(HIGH) Secondary Visit Codes: [id number] CARE PLAN 30 MINUTES SYLVIA BARTH MD Aug 21, 2024 11:52
--- NOTE | 2024-08-21 12:54 | ECG ---
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
--- NOTE | 2024-08-21 16:44 | DVHINCON2 ---
Date Seen: Aug 21, 2024 Referring Physician MD Enrrique Reason for Consultation Decreased LV function History of Present Illness This is a 49-year-old male who presented to the emergency room with a chief complaint of abdominal pain and shortness of breath. The patient complains of shortness of breath associated with PND, bilateral lower extremity edema, and chest tightness. The patient underwent multiple 12 lead electrocardiogram revealing a sinus rhythm with global T-wave inversion and suggestive of left ventricular hypertrophy. BNP level was found in the 500s. Per patient, he has a known cardiomyopathy but somehow has failed to follow up with the primary risk control field representative during the past two years. Per mother at bedside, the patient underwent a cardiac catheterization and coronary angiogram without catheter based intervention during the past year or so. Significant medical history includes congestive heart failure, hypertension, asthma, dyslipidemia, [id number] diabetes mellitus, obesity, and recent history of methamphetamine use. Past Medical History Past medical history reviewed. No other significant than mentioned above. Past Surgical History Hernia repair Tonsillectomy Eustachian tubes Family History: FH: leukemia G8 FATHER FH: mental illness G8 MOTHER Thyroid disease G8 MOTHER Family History Family history reviewed. Social History Denies the use of alcohol, or tobacco use. Admits to recent methamphetamine use. Allergies: Coded Allergies: NO KNOWN ALLERGIES (Unverified , 03/12/13) Home Meds Reported Medications Metformin Hydrochloride (Metformin Hcl) 1,000 Mg Tab, 1 TAB PO BID for 100 Days, #200 08/21/24 Carvedilol (Carvedilol) 6.25 Mg Tab, 1 TAB PO BID 08/19/24 Aspirin (Aspirin Low Dose) 81 Mg Tab, 1 TAB PO DAILY 08/19/24 Spironolactone (Spironolactone) 25 Mg Tab, 1 TAB PO DAILY 08/19/24 Furosemide (Furosemide) 40 Mg Tab, 1 TAB PO DAILY 08/19/24 Ixtii-8-Rjeu Ethyl Esters (Lrdlm-2-Tbhm Ethyl Esters) 1 Gm Cap, 1 CAP PO BID 08/19/24 Atenolol (Atenolol) 25 Mg Tab, 25 MG PO DAILY 03/12/13 Hydrochlorothiazide (Hydrochlorothiazide) 12.5 Mg Cap, 12.5 MG PO DAILY 03/12/13 Home Meds Home medications reviewed. Review of Systems Constitutional: No symptom reported Ears, Nose, & Throat: No symptom reported Eyes: No symptom reported Neurological: No symptoms reported Pulmonary/Respiratory: SOB Cardiovascular: BLE edema Gastrointestinal: Abdominal pain Genitourinary: No symptom reported Musculoskeletal: No symptom reported Skin: No symptom reported Psychiatric: No symptom reported Endocrine: No symptom reported Hemotologic/Lymphatic: No symptom reported Vital Signs Vital Signs Date Time Temp Pulse Resp B/P (MAP) Pulse Ox O2 Delivery O2 Flow Rate FiO2 08/21/24 13:00 98.1 101 18 131/89 (103) 96 98.1 08/21/24 07:37 Room Air* 0 21 Physical Exam General Appearance: Cooperative. Well developed. Obese. In no acute distress Head Exam: Normal inspection Neck Exam: Normal inspection. Non-tender. Normal alignment Pulmonary/Respiratory: Chest non-tender. Diminished bilateral breath sounds Cardiovascular/Chest: Regular rate and rhythm. S1, S2. Sinus rhythm suggestive of LVH. No murmurs. No JVD. Peripheral Pulses: 2+ Radial (R). 2+ Radial (L). 2+ Pedal (R). 2+ Pedal (L) Abdominal Exam: Normal bowel sounds. Soft. Ankle Exam: Positive ankle edema, 1+ Lower extremities: Positive lower extremity edema, 1+ Neuro/Mental Status: A&O x3. Coherent but poor historian Thoughts/Psych: Normal thought pattern. Appearance: In no acute distress Skin Exam: Normal inspection. Normal color. Warm. Dry Labs/Diagnostic Data Labs Test 08/21/24 12:50 08/20/24 05:23 08/19/24 18:52 08/19/24 11:41 Range/Units POC Glucose 164 H 70-106 mg/dl White Blood Count 10.5 4.4-10.8 10^3/uL Red Blood Count 4.93 4.5-5.90 10^6/uL Hemoglobin 14.7 13.5-17.5 g/dL Hematocrit 45.6 41.0-53.0 % Mean Corpuscular Volume 92.4 80.0-100.0 fL Mean Corpuscular Hemoglobin 29.7 28.0-32.0 pg Mean Corpuscular Hemoglobin Concent 32.2 32.0-36.0 g/dL Red Cell Distribution Width 16.0 H 11.8-14.3 % Platelet Count 271 140-450 10^3/uL Mean Platelet Volume 8.9 6.9-10.8 fL Neutrophils (%) (Auto) 59.8 37.0-80.0 % Lymphocytes (%) (Auto) 32.4 10.0-50.0 % Monocytes (%) (Auto) 5.6 0.0-12.0 % Eosinophils (%) (Auto) 1.5 0.0-7.0 % Basophils (%) (Auto) 0.7 0.0-2.0 % Neutrophils # (Auto) 6.3 1.6-8.6 10 ^3/uL Lymphocytes # (Auto) 3.4 0.4-5.4 10 ^3/uL Monocytes # (Auto) 0.6 0-1.3 10 ^3/uL Eosinophils # (Auto) 0.2 0-0.8 10 ^3/uL Basophils # (Auto) 0.1 0-0.2 10 ^3/uL Nucleated Red Blood Cells 0.2 % Sodium Level 139 136-145 mmol/L Potassium Level 4.4 3.5-5.1 mmol/L Chloride Level 106 98-107 mmol/L Carbon Dioxide Level 26 20-31 mmol/L Anion Gap 7 5-15 Blood Urea Nitrogen 18 9-23 mg/dL Creatinine 0.91 0.700-1.30 mg/dL Glomerular Filtration Rate Calc 102 >90 mL/min BUN/Creatinine Ratio 19.8 10.0-20.0 Serum Glucose 114 H 74-106 mg/dL Calcium Level 9.7 8.7-10.4 mg/dL Total Bilirubin 0.4 0.2-1.0 mg/dL Aspartate Amino Transferase (AST) 25 13-40 U/L Alanine Aminotransferase (ALT) 36 7-40 U/L Alkaline Phosphatase 122 H 46-116 U/L Total Protein 7.2 5.7-8.2 g/dL Albumin 4.3 3.2-4.8 g/dL Erythrocyte Sedimentation Rate 14 0-20 mm/hr Lactic Acid Level 1.2 0.4-2.0 mmol/L B-Type Natriuretic Peptide 502.27 0-100 pg/mL Urine Color Colorless Yellow Urine Clarity Clear Clear Urine pH 5.5 5.0-9.0 Urine Specific [place] 1.007 1.001-1.035 Urine Protein Negative Negative Urine Ketones Negative Negative Urine Blood Negative Negative /uL Urine Nitrite Negative Negative Urine Bilirubin Negative Negative Urine Urobilinogen Normal Negative mg/dL Urine Leukocyte Esterase Negative Negative /uL Urine RBC None seen 0 - 3 /hpf Urine WBC None seen 0 - 3 /hpf Urine Squamous Epithelial Cells Few <5 /hpf Urine Bacteria None seen None Seen /hpf Urine Mucus Few None Seen Urine Glucose Normal Normal mg/dL Test 08/19/24 09:48 Range/Units Hemoglobin A1c 6.2 H <5.7 % A1C C-Reactive Protein High Sensitivity 0.52 <1.0 mg/dL Microbiology Date/Time Source Procedure Growth Status 08/19/24 18:52 Blood Blood Culture - Preliminary NO GROWTH AFTER 24 HOURS OF INCUBATION. 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 Victor) The patient underwent a transthoracic echocardiogram revealing an LVEF at 15% with severe global hypokinesis and a dilated right ventricle. He also presents with severely dilated left atrial chamber size and tethering of the posterior mitral valve leaflets with upovbtcd-sj-[id number] mitral regurgitation. Initiate GDMT for CHF and uptitrate as tolerated. Strict I&Os, daily weight, maintain fluid restrictions. Patient advised to medical compliance and drug abuse cessation. He can follow-up as an outpatient for a mitral valve replacement (mitral clip). There is no further cardiac workup indicated at this time. Thank you for allowing us to participate in this patient's care. Please call if you have any questions or concerns. This medical document was created using an electronic medical record system with voice recognition software and computerized dictation system. Although this document has been carefully reviewed, there might still be some phonetic and typographical errors. Occasional wrong-word or ``sound-alike substitutions may have occurred due to the inherent limitations of voice recognition software. These areas are purely typographical due to imperfections of the software programs and do not reflect any compromise in the patient's medical care. Please read the chart carefully and recognize, using context, where these substitutions have occurred. Plan discussed with: Patient, Other NYHA Physical activity limitations: Class3(Marked) ordinary (activity causes symtoms) Date of Service: Aug 21, 2024 Billing Provider: SPENSER VICTOR MD Cardiology Common Codes: [id number] INP/OBS CARE (High) [facility] Aug 21, 2024 16:44
[2024-08-21] MEDS: FUROSEMIDE 40 MG/4 ML VIAL IV SCH (19:03)
[2024-08-21] MEDS: CARVEDILOL 3.125 MG TAB PO SCH (22:32)
[2024-08-21] MEDS: SACUBITRIL-VALSARTAN 24mg/26mg TAB PO SCH (22:32)
[2024-08-22] VITALS (8 sets, daily range): BP systolic 106–126; BP diastolic 64–89; PULSE 84–98; RESP 17–20; TEMP 36.8; O2SAT 93–98
[2024-08-22] MEDS: EMPAGLIFLOZIN 10 MG TAB PO SCH (11:53)
[2024-08-22] MEDS: SPIRONOLACTONE 25 MG TAB PO SCH (11:55)
--- NOTE | 2024-08-22 12:20 | DVHPN2 ---
Reviewed: Care Plan, H&P, Labs, Medications, Previous Orders, Radiology Changes from previous H/P or p: No Changes Eyes: No Pain, No Vision change, No Conjunctivae inflammation, No Eyelid inflammation, No Other, No Redness ENT: No Ear pain, No Ear discharge, No Nose pain, No Nose discharge, No Nose congestion, No Mouth pain, No Mouth swelling, No Throat pain, No Throat swelling, No Other Cardiovascular: No Chest Pain, No Palpitations, No Orthopnea, No Paroxysmal Noc. Dyspnea, No Edema, No Lt Headedness, No Other Respiratory: No Cough, No Dry; Shortness of breath; No SOB with excertion, No Wheezing, No Hemoptysis, No Pleuritic Pain, No Sputum, No Other Gastrointestinal: No Nausea, No Vomiting; Abdominal Pain; No Diarrhea, No Constipation, No Melena, No Hematochezia, No Other Genitourinary: No Dysuria, No Frequency, No Incontinence, No Hematuria, No Retention, No Other Musculoskeletal: No other, No neck pain, No shoulder pain, No arm pain, No back pain, No hand pain, No leg pain, No foot pain Skin: No Rash, No Lesions, No Jaundice, No Bruising; Other Objective Vitals Vital Signs Date Time Temp Pulse Resp B/P (MAP) Pulse Ox O2 Delivery O2 Flow Rate FiO2 08/22/24 12:05 90 18 126/72 93 0.0 21 08/22/24 09:34 98.2 98.2 08/22/24 09:03 Room Air* Intake/Output Intake and Output 08/22/24 07:00 Intake Total 1950 ml Output Total 1100 ml Balance 850 ml Intake Oral 1800 ml IV Total 150 ml Output Urine Total 1100 ml # Voids 4 # Bowel Movements 5 Medications Current Medications Medications Dose Ordered Sig/Radha Route Start Time Stop Time Status Last Admin Dose Admin Ceftriaxone Sodium 50 ml @ 100 mls/hr DAILY@09 IV 08/20/24 09:00 08/22/24 11:55 100 MLS/HR Clindamycin Phosphate 50 ml @ 50 mls/hr Q8HR IV 08/19/24 22:00 08/22/24 06:08 50 MLS/HR Patient Own Medication 12.5 mg DAILY PO 08/20/24 10:00 UNV Acetaminophen/ Hydrocodone Bitart 1 tab Q4HP PRN PO 08/19/24 15:45 Ondansetron HCl 4 mg Q4HP PRN IV 08/19/24 15:45 Enoxaparin Sodium 40 mg DAILY SC 08/20/24 10:00 08/22/24 11:53 40 MG Acetaminophen 650 mg Q6HP PRN PO 08/19/24 15:45 Morphine Sulfate 2 mg Q4HPRN PRN IV 08/19/24 15:45 Diagnostic Test (Pha) 1 strip ACHS 08/19/24 17:00 08/22/24 11:55 1 STRIP Insulin Human Regular ACHS SC 08/19/24 17:00 08/21/24 13:13 3 UNITS Dextrose 50 ml UD PRN IV 08/19/24 15:45 Albuterol 2.5 mg Q4HPRN PRN NEB 08/19/24 16:00 Cancel Ipratropium [place] 0.5 mg Q4HPRN PRN NEB 08/19/24 16:00 Cancel Albuterol 2.5 mg Q4HPRN PRN NEB 08/20/24 14:45 08/21/24 07:37 2.5 MG Ipratropium [place] 0.5 mg Q4HPRN PRN NEB 08/20/24 14:45 08/21/24 07:37 0.5 MG Furosemide 40 mg BIDD IV 08/21/24 18:00 08/22/24 06:04 40 MG Carvedilol 3.125 mg Q12HR PO 08/21/24 22:00 08/22/24 11:55 3.125 MG Empaglifozin 10 mg DAILY PO 08/22/24 10:00 08/22/24 11:53 10 MG Spironolactone 25 mg DAILY PO 08/22/24 10:00 08/22/24 11:55 25 MG Sacubitril/ Valsartan 1 tab BID PO 08/21/24 22:00 08/22/24 11:53 1 TAB Laboratory Results Laboratory Tests 08/20/24 05:23 Urinalysis Test 08/19/24 11:41 Urine Color Colorless (Yellow) Urine Clarity Clear (Clear) Urine pH 5.5 (5.0-9.0) Urine Specific [place] 1.007 (1.001-1.035) Urine Protein Negative (Negative) Urine Ketones Negative (Negative) Urine Blood Negative /uL (Negative) Urine Nitrite Negative (Negative) Urine Bilirubin Negative (Negative) Urine Urobilinogen Normal mg/dL (Negative) Urine Leukocyte Esterase Negative /uL (Negative) Urine RBC None seen /hpf (0 - 3) Urine WBC None seen /hpf (0 - 3) Urine Squamous Epithelial Cells Few /hpf (<5) Urine Bacteria None seen /hpf (None Seen) Urine Mucus Few (None Seen) Urine Glucose Normal mg/dL (Normal) Microbiology Microbiology Date/Time Source Procedure Growth Status 08/19/24 18:52 Blood Blood Culture - Preliminary NO GROWTH AFTER 48 HOURS OF INCUBATION. Resulted Labs and/or images reviewed: Labs reviewed by me, Image(s) reviewed by me Assessment/Plan Assessment/Plan Intractable abdominal pain Cellulitis of suprapubic area : Rocephin clindamycin Thickened gallbladder wall : Cholecystitis ruled out Sepsis Acute CHF exacerbation Lasix echocardiogram 15% ejection fraction, severe mitral regurgitation, cardiology consult apprecited Acute COPD exacerbation: Med neb Diabetes Hypertension Asthma Chronic Current smoker: Counseling History of abdominal tumor removal Patient is full code Advanced care planning time 20 minutes Plan discussed with: Patient Date of Service: Aug 22, 2024 Billing Provider: SYLVIA BARTH MD Common Visit Codes: [id number] INP/OBS CARE(HIGH) SYLVIA BARTH MD Aug 22, 2024 12:20
[2024-08-22] MEDS ORDERED: SACU1TAB PO (12:37)
[2024-08-22] MEDS ORDERED: CLIN1CAP70 PO (12:37)
[2024-08-22] MEDS ORDERED: EMPA1TAB PO (12:37)
[2024-08-22] MEDS ORDERED: FURO1TAB31 PO (12:37)
[2024-08-22] MEDS ORDERED: CARV6.2517 PO (12:37)
[2024-08-22] MEDS ORDERED: SPIR25TA PO (12:37)
--- NOTE | 2024-08-22 12:44 | DVHDS2 ---
Discharge Summary Date of Admission Aug 19, 2024 at 15:41 Date of Discharge: Aug 22, 2024 Admitting Diagnosis Shortness of breath Wounds: None Labs/Diagnostic Data: Laboratory Results Test 08/22/24 06:00 08/20/24 05:23 08/19/24 18:52 08/19/24 11:41 POC Glucose 105 mg/dl (70-106) White Blood Count 10.5 10^3/uL (4.4-10.8) Red Blood Count 4.93 10^6/uL (4.5-5.90) Hemoglobin 14.7 g/dL (13.5-17.5) Hematocrit 45.6 % (41.0-53.0) Mean Corpuscular Volume 92.4 fL (80.0-100.0) Mean Corpuscular Hemoglobin 29.7 pg (28.0-32.0) Mean Corpuscular Hemoglobin Concent 32.2 g/dL (32.0-36.0) Red Cell Distribution Width 16.0 % (11.8-14.3) Platelet Count 271 10^3/uL (140-450) Mean Platelet Volume 8.9 fL (6.9-10.8) Neutrophils (%) (Auto) 59.8 % (37.0-80.0) Lymphocytes (%) (Auto) 32.4 % (10.0-50.0) Monocytes (%) (Auto) 5.6 % (0.0-12.0) Eosinophils (%) (Auto) 1.5 % (0.0-7.0) Basophils (%) (Auto) 0.7 % (0.0-2.0) Neutrophils # (Auto) 6.3 10 ^3/uL (1.6-8.6) Lymphocytes # (Auto) 3.4 10 ^3/uL (0.4-5.4) Monocytes # (Auto) 0.6 10 ^3/uL (0-1.3) Eosinophils # (Auto) 0.2 10 ^3/uL (0-0.8) Basophils # (Auto) 0.1 10 ^3/uL (0-0.2) Nucleated Red Blood Cells 0.2 % Sodium Level 139 mmol/L (136-145) Potassium Level 4.4 mmol/L (3.5-5.1) Chloride Level 106 mmol/L (98-107) Carbon Dioxide Level 26 mmol/L (20-31) Anion Gap 7 (5-15) Blood Urea Nitrogen 18 mg/dL (9-23) Creatinine 0.91 mg/dL (0.700-1.30) Glomerular Filtration Rate Calc 102 mL/min (>90) BUN/Creatinine Ratio 19.8 (10.0-20.0) Serum Glucose 114 mg/dL (74-106) Calcium Level 9.7 mg/dL (8.7-10.4) Total Bilirubin 0.4 mg/dL (0.2-1.0) Aspartate Amino Transferase (AST) 25 U/L (13-40) Alanine Aminotransferase (ALT) 36 U/L (7-40) Alkaline Phosphatase 122 U/L (46-116) Total Protein 7.2 g/dL (5.7-8.2) Albumin 4.3 g/dL (3.2-4.8) Erythrocyte Sedimentation Rate 14 mm/hr (0-20) Lactic Acid Level 1.2 mmol/L (0.4-2.0) B-Type Natriuretic Peptide 502.27 pg/mL (0-100) Urine Color Colorless (Yellow) Urine Clarity Clear (Clear) Urine pH 5.5 (5.0-9.0) Urine Specific [place] 1.007 (1.001-1.035) Urine Protein Negative (Negative) Urine Ketones Negative (Negative) Urine Blood Negative /uL (Negative) Urine Nitrite Negative (Negative) Urine Bilirubin Negative (Negative) Urine Urobilinogen Normal mg/dL (Negative) Urine Leukocyte Esterase Negative /uL (Negative) Urine RBC None seen /hpf (0 - 3) Urine WBC None seen /hpf (0 - 3) Urine Squamous Epithelial Cells Few /hpf (<5) Urine Bacteria None seen /hpf (None Seen) Urine Mucus Few (None Seen) Urine Glucose Normal mg/dL (Normal) Test 08/19/24 09:48 Hemoglobin A1c 6.2 % A1C (<5.7) C-Reactive Protein High Sensitivity 0.52 mg/dL (<1.0) Other Laboratory Tests 08/20/24 05:23 Brief Hx & Hospital Course: 49-year-old male with a history of abdominal tumor removal in the past came in complaining of abdominal pain. CT abdomen pelvis without contrast was negative patient had cellulitis of the suprapubic area treated with Rocephin and clindamycin gallbladder wall was thickened no cholecystitis. The patient has acute on chronic CHF exacerbation treated with a Lasix Entresto Jardiance Aldactone. Seen by Cardiology ejection fraction 15 percent the patient has chronic meth abuser advised to quit using meth also history of diabetes hypertension asthma and current smoker advised to quit smoking recently moved from [place] with a advised to follow up with the local PCP and discharge clinic prescription transmitted to the pharmacy. Mother who is also his caregiver at the bedside at the time of discharge Consults/Reason for consult Cardiology Operations or Procedures Echocardiogram Condition at Discharge: Poor Final Diagnosis/Problems List Intractable abdominal pain Cellulitis of suprapubic area : Rocephin clindamycin Thickened gallbladder wall : Cholecystitis ruled out Sepsis Acute CHF exacerbation Lasix echocardiogram 15% ejection fraction, severe mitral regurgitation, cardiology consult apprecited Acute COPD exacerbation: Med neb Diabetes Hypertension Asthma Chronic Current smoker: Counseling History of methamphetamine abuse History of abdominal tumor removal Patient is full code Discharge Disposition: Home Discharge Instruct/Medications Diet: Cardiac 2g Na,low cholest Activity: Light activity Follow Up/Referral: Follow up with discharge clinic in one week Follow up with the primary Dr in two weeks Medications: Entresto Aldactone Jardiance Coreg Lasix Clindamycin Transmitted to [facility] [id number] [place] [id number] (Time taken for discharge summary 39 minutes) Discharge Statement: "Patient was advised to return to the ER or call 911 if any headaches, dizziness, shortness of breath, chest pain, abdominal pain, bleeding, fevers, or worsening of medical condition. Patient was counseled about treatment plan, medications, possible side effects, patientverbalized understanding. All questions were answered to the best of my ability. This discharge took greater then 30 minutes in planning, reviewing documentation, counseling the patient, and discussing with other team members." ASSESSMENT ASSESSMENT Hospital Course Marginally improved Assessment Intractable abdominal pain Cellulitis of suprapubic area : Rocephin clindamycin Thickened gallbladder wall : Cholecystitis ruled out Sepsis Acute CHF exacerbation Lasix echocardiogram 15% ejection fraction, severe mitral regurgitation, cardiology consult apprecited Acute COPD exacerbation: Med neb Diabetes Hypertension Asthma Chronic Current smoker: Counseling History of methamphetamine abuse History of abdominal tumor removal Patient is full code Date of Service: Aug 22, 2024 Billing Provider: SYLVIA BARTH MD Common Visit Codes: [id number] DISCH DAY >30min SYLVIA BARTH MD Aug 22, 2024 12:44
--- NOTE | 2024-08-22 15:26 | ECG ---
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
--- NOTE | 2024-08-25 09:22 | ECG ---
[facility] Test Date: 2024-08-20 Test Time: 14:12:22 Pat Name: JONATHAN BURGESS Department: ed holding Room: 0270 A Gender: M Dispatch Associate: jarett : 1975 Requested By: HESHAM RAMIREZ Order Number: [id number] Reading MD: Valente Valverde Measurements Intervals [place] Rate: 77 P: 55 DE: 183 QRS: 37 QRSD: 106 T: 125 QT: 408 QTc: 462 Interpretive Statements Sinus rhythm Probable left atrial enlargement Borderline repolarization abnormality Electronically Signed On 08-28-2024 9:25:28 PST by Valente Valverde Please click the below link to view image of tracing.
== END 2024-08-22 18:56 | disposition home or self-care (01) | DRG 383 ==
LOC: ER 08:54 → OVERFLOW 15:41 → WEST WING 08-21 03:20
PROVIDERS: ATTEND Family Medicine
DX: L03.311 Cellulitis of abdominal wall (principal); I50.23 Acute on chronic systolic (congestive) heart failure; I42.9 Cardiomyopathy, unspecified; J44.1 Chronic obstructive pulmonary disease with (acute) exacerbation; E11.42 Type 2 diabetes mellitus with diabetic polyneuropathy; I11.0 Hypertensive heart disease with heart failure; F17.210 Nicotine dependence, cigarettes, uncomplicated; E11.65 Type 2 diabetes mellitus with hyperglycemia; E78.5 Hyperlipidemia, unspecified; F15.10 Other stimulant abuse, uncomplicated; E66.01 Morbid (severe) obesity due to excess calories; I34.0 Nonrheumatic mitral (valve) insufficiency; Z68.35 Body mass index [BMI] 35.0-35.9, adult; Z80.6 Family history of leukemia; Z83.3 Family history of diabetes mellitus; Z80.3 Family history of malignant neoplasm of breast; Z79.84 Long term (current) use of oral hypoglycemic drugs; Z91.199 Patient's noncompliance with other medical treatment and regimen due to unspecified reason
CPT/HCPCS: 36415; 71045; 74176; 76705; 80048; 80053; 81001; 82962; 83036; 83605; 83880; 85025; 85652; 86141; 87040; 93005; 93306; 94640; 99291; G0378; J1815; J3490